=== PATIENT | male | born 1970 | race Caucasian/White ===

== ENCOUNTER 2016-09-22 22:47 | Emergency (ER) | payer SELFPAY ==
[~2016-09-22 22:47] MED LIST: ADVIL200 M1 PO; ALBUTEROL 0.5ML; ALBUTEROL17 GM; CLINDAMYCIN HC300 MG PO; EC-NAPROSYN500 MG PO; FLEXERIL PO; FLEXERIL10 MG PO; NO MEDICATIONS; PERCOCET 5-3251 TAB PO; SUDAFED PO; TAMIFLU75 M1 PO; TYLENOL #3 PO; ULTRAM PO; VIBRAMYCIN100 M1 PO; VICODIN 5/1 TAB 5/50 PO
[2016-09-22] MEDS ORDERED: AMOXICILLIN (23:13)
== END 2016-09-22 23:15 | disposition home or self-care (01) ==
LOC: SED 22:47
DX: J32.0 Chronic maxillary sinusitis (principal)
CPT/HCPCS: 96374; 99283